=== PATIENT | female | born 1985 | race Caucasian/White ===

== ENCOUNTER → 2022-01-11 | Outpatient (CLI) | payer OTHER | LOC: EMI 13:37 | DX: G25.0 Essential tremor (principal); G43.009 Migraine without aura, not intractable, without status migrainosus; G44.89 Other headache syndrome | CPT/HCPCS: 70551 ==

== ENCOUNTER → 2022-04-26 | Outpatient (CLI) | payer OTHER | LOC: KOH-I 04-19 09:00 | DX: J32.9 Chronic sinusitis, unspecified (principal) | CPT/HCPCS: 70486 ==